=== PATIENT | female | born 1960 | race Caucasian/White ===

== ENCOUNTER → 2016-12-30 | Outpatient (CLI) | payer OTHER ==
[~2016-12-30] MED LIST: ASPI81TA28 PO; CHOL1000 PO; CYCL5TAB PO; EVAMIST TOP; HYDR25TA4 PO; LOSA1TAB38 PO; MECL1TAB42 PO; MISCTAB78 PO; MULT-506 PO; ONDA4TAB46 PO; OXYC-57 PO; OXYC7.5T65 PO; PHEN-876 PO; PROP1TAB PO; RANI150T3 PO; SULF800T23 PO; TAMS0.4C38 PO
[2016-12-30 15:03] LABS: BLOOD UREA NITROGEN 20 mg/dl (7-18); BUN/CREATININE RATIO 24.7 (10-20); CALCIUM 9.7 mg/dl (8.5-10.1); CARBON DIOXIDE 30 mmol/L (21-32); CHLORIDE 102 mmol/L (98-107); CREATININE 0.79 mg/dl (0.60-1.20); GLUCOSE 127 mg/dl (70-99); MAGNESIUM 2.1 mg/dl (1.8-2.4); POTASSIUM 3.8 mmol/L (3.5-5.1); SODIUM 141 mmol/L (136-145)
== END | disposition home or self-care (01) ==
LOC: C.LAB 14:05
PROVIDERS: ATTEND Internal Medicine Nephrology
DX: I10 Essential (primary) hypertension (principal); N20.0 Calculus of kidney

== ENCOUNTER → 2017-01-03 | Outpatient (CLI) | payer OTHER ==
[2017-01-03 18:10] LABS: BASO % 0.5 %; BASO ABS # 0.05 K/uL (0-0.2); COMPLETE YES; EOS % 5.2 %; HEMATOCRIT 38.6 % (37-47); IG% 0.3 %; LYMPH % 32.7 %; LYMPH ABS # 3.37 K/uL (1.2-3.4); MEAN CELL VOLUME 87.7 fL (80-100); MEAN CORPUSCULAR HEMOGLOBIN 29.3 pg (25-34); MEAN CORPUSCULAR HGB CONC 33.4 g/dl (32-36); MEAN PLATELET VOLUME 9.8 fL (7.4-10.4); MONO % 5.7 %; NEUT % 55.6 %; PLATELET COUNT 298 K/uL (130-400)
== END | disposition home or self-care (01) ==
LOC: C.LAB 16:55
PROVIDERS: ATTEND Nurse Practitioner Family
DX: N20.0 Calculus of kidney (principal)

== ENCOUNTER → 2017-01-10 | Day surgery (SDC) | payer OTHER ==
[2017-01-04 13:57] VITALS: BMI 51.0
[~2017-01-10] VITALS: Ht 160 cm; Wt 131.8 kg
[~2017-01-10] MED LIST changes: +ATROPINE SULFATE 0.1 MG/ML 5ML SYR IV PRN; +CIPROFLOXACIN / D5W 400 MG IV SCH; +CONRAY 30% 150ML BOTTLE INSTIL ONE; +DEXAMETHASONE SOD INJ 4 MG/ML VIAL ONE; +EpHEDrine SULFATE INJ 50 MG/ML AMP IV PRN; +FENTANYL CITRATE INJ 50 MCG/1 ML 2 ML VIAL ONE; +HYDROmorphone INJ 2 MG/ML SYR/VIAL IV PRN; +LACTATED RINGER'S 1000ML 1,000 ML IV SCH; +LIDOCAINE HCL 2% 2 ML VIAL (20MG/ML) ONE; +MIDAZOLAM HCL 1 MG/ML 2ML VIAL ONE; -ONDA4TAB46 PO; +ONDANSETRON INJ 2 MG/ML 2 ML VIAL IV PRN; +ONDANSETRON INJ 2 MG/ML 2 ML VIAL ONE; +OXYCODONE/ACETAMINOPHEN 5-325 TAB PO PRN; +PHENYLEPHRINE 100MCG/ML 5ML SYR IV PRN; +PHENYLEPHRINE 100MCG/ML 5ML SYR ONE; +PROPOFOL IV EMULSION 10 MG/ML 20 ML VIAL IV ONE; +ROCURONIUM BROMIDE 10 MG/ML 5 ML VIAL ONE; +SCOPOLAMINE 1.5 MG TDSY TD ONE; +SUCCINYLCHOLINE CHLORIDE 20 MG/ML 10 ML VIAL IV ONE; -SULF800T23 PO
[2017-01-10 10:22] VITALS: BP 174/89; PULSE 77; TEMP 37; O2SAT 96; Ht 160 cm; Wt 131.8 kg
--- NOTE | 2017-01-10 11:00 | History & Physical Bridge Note ---
H&P Re-Evaluation Bridge Note: I have examined the patient, reviewed the History & Physical and in the interval since the performance of the History & Physical I have noted the following changes of clinical significance: No changes noted
--- NOTE | 2017-01-10 12:17 | [facility] Post Operative Brief Note ---
Immediate Operative Summary Operative Date Jan 10, 2017. Pre-Operative Diagnosis Calculus of kidney and ureter Post-Operative Diagnosis Calculus of kidney and ureter Procedure(s) Performed Right Cystoscopy, Ureteroscopy, Laser Lithotripsy; Stent Surgeon Dr. Vaughn Freire [employer] Manager Surgeon(s) None Findings distal right ureteral stone
--- NOTE | 2017-01-10 12:19 | Discharge Instructions ---
Discharge Instructions Date of Service Jan 10, 2017. Visit Reason for Visit: Stones Discharge Discharge Diagnosis / Problem: stone Discharge Goals Goal(s): Therapeutic intervention Activity Recommendations Activity Limitations: resume your previous activity (take it easy today) Anesthesia . Post Anesthesia Instructions: If you have had General Anesthesia or IV Sedation: * Do not drive today. * Resume driving when surgeon permits. * Do not make important decisions or sign legal documents today. * Call surgeon for: 1. Temperature elevations greater than 101 degrees F. 2. Uncontrollable pain. 3. Excessive bleeding. 4. Persistent nausea and vomiting. 5. Medication intolerance (nausea, vomiting or rash). * For nausea and vomiting use only clear liquids such as: tea, soda, bouillon until nausea subsides, then gradually increase diet as tolerated. * If you have any concerns or questions, call your surgeon's office. If physician is unavailable and it is an emergency, call 911 or go to the nearest emergency room. . Diet Recommendations Recommended Home Diet: resume previous diet Procedures Procedures Performed: Right Cystoscopy, Ureteroscopy, Laser Lithotripsy; Stent Pending Studies Studies pending at discharge: no Medical Emergencies . Who to Call and When: Medical Emergencies: If at any time you feel your situation is an emergency, please call 911 immediately. . Non-Emergent Contact Non-Emergency issues call your: Urologist . . "Provider Documentation" section prepared by Vaughn Freire. [place] Drug Monitoring Program Search Results: patient reviewed within database
[2017-01-10 12:55] VITALS: BP 152/85; PULSE 68; TEMP 36.6; O2SAT 92
--- NOTE | 2017-01-10 13:08 | Anesthesiology Progress Note ---
Anesthesia Post Op Note Date & Time Jan 10, 2017 at 13:08 Vital Signs Pain Intensity: 0 Vital Signs Past 12 Hours Date Time Temp Pulse Resp B/P Pulse Ox O2 Delivery O2 Flow Rate FiO2 01/10/17 12:55 36.6 68 16 152/85 92 Room Air 01/10/17 12:45 36.8 138/93 01/10/17 12:42 73 20 98 01/10/17 12:42 73 20 01/10/17 12:40 144/91 01/10/17 12:37 75 23 01/10/17 12:37 75 23 100 01/10/17 12:36 112/92 01/10/17 12:32 64 18 01/10/17 12:32 64 18 100 01/10/17 12:30 130/83 01/10/17 12:27 68 20 01/10/17 12:27 67 20 100 01/10/17 12:26 131/81 01/10/17 12:22 68 20 01/10/17 12:22 67 20 100 01/10/17 12:21 131/81 01/10/17 12:19 127/77 01/10/17 12:12 36.2 80 16 126/84 99 Mask 10 01/10/17 10:22 37 77 18 174/89 96 Room Air Notes Mental Status: alert / awake / arousable, participated in evaluation Pt Amnestic to Procedure: Yes Nausea / Vomiting: adequately controlled Pain: adequately controlled Airway Patency, RR, SpO2: stable & adequate BP & HR: stable & adequate Hydration State: stable & adequate Anesthetic Complications: no major complications apparent
[2017-01-10 13:25] VITALS: BP 153/73; PULSE 63; TEMP 36.6; O2SAT 95
--- NOTE | 2017-01-10 13:41 | DIAGNOSTIC IMAGING REPORT ---
Retrograde PolyGram RIGHT RETROGRADE INCLUDES KUB CLINICAL HISTORY: RIGHT STENT PLACEMENT, LASER LITHO Right TECHNIQUE: Image intensifier COMPARISON STUDY: None FINDINGS: Single image provided shows a proximal stent in the region of the right renal pelvis. IMPRESSION: Stent placement of the proximal aspect in the right renal pelvis Electronically signed by: Tab Dunn M.D. 01/10/2017 1:40 PM Dictated Date/Time: 01/10/2017 1:39 PM
--- NOTE | 2017-01-10 13:48 | OPERATIVE REPORT ---
DATE OF OPERATION: 01/10/2017 PREOPERATIVE DIAGNOSIS: Distal right ureteral calculus. POSTOPERATIVE DIAGNOSIS: Same. PROCEDURES: Cystoscopy, right retrograde pyelogram, right ureteroscopy with laser lithotripsy of stone and basketing of fragments, placement of an indwelling double J right ureteral stent 6 Togolese x 26 cm. FINDINGS: Cystoscopic exam revealed normal urethra. Bladder showed no mucosal abnormalities. Retrograde showed a stone in the distal ureter confirmed by ureteroscopy. SURGEON: Dr. Freire. ANESTHESIA: General. DRAINS: 6-Togolese x 26 cm right ureteral stent. COMPLICATIONS: None. SPECIMENS: None. INDICATIONS: The patient is a 56-year-old white female who was seen in the office for a right renal colic secondary to a distal stone. She was unable to pass the stone around and she is being brought in now for laser lithotripsy. DESCRIPTION OF PROCEDURE: After the induction of an adequate general anesthetic and appropriate time-out, the patient was placed in the dorsal lithotomy position, lower abdomen and genitalia were prepped with Hibiclens and draped in a sterile fashion. Using a 22-Togolese cystoscope, routine cystoscopic exam was performed with the above noted findings. Next 0.03 guidewire was passed up the right ureter until positioned in the renal pelvis confirmed by fluoroscopy. Cystoscope was removed. Rigid ureteroscopy was done up to the level of the stone. The stone was then fragmented into multiple small pieces with a 200 micron holmium laser fiber. After completing this, some larger fragments were extracted with a 0 tip basket and handed off. After completing this and making sure there were no stone remaining in the ureter, a Pollack catheter was threaded over the wire until positioned in the renal pelvis. Retrograde was done to confirm position in the renal pelvis. The guidewire was rethreaded through the Cowen catheter and then rethreaded through the cystoscope and a 6 Togolese x 26 cm stent was passed over the guidewire to position in the renal pelvis confirmed by fluoroscopy. The guidewire was removed. There was good curl at the bladder level. The patient's bladder was drained. All needle, sponge and instrument counts were correct at the end of the case. The patient tolerated the procedure well and went to the recovery room in stable condition. I attest to the content of the Intraoperative Record and any orders documented therein. Any exceptio ns are noted below.
[2017-01-10 13:55] VITALS: BP 164/76; PULSE 75; TEMP 36.7; O2SAT 95
== END | disposition home or self-care (01) ==
LOC: C.ACU 09:52
PROVIDERS: ATTEND Urology
DX: N20.2 Calculus of kidney with calculus of ureter (principal); I10 Essential (primary) hypertension

== ENCOUNTER → 2017-01-17 | Outpatient (CLI) | payer OTHER ==
[~2017-01-17] MED LIST changes: -ATROPINE SULFATE 0.1 MG/ML 5ML SYR IV PRN; -CIPROFLOXACIN / D5W 400 MG IV SCH; -CONRAY 30% 150ML BOTTLE INSTIL ONE; -DEXAMETHASONE SOD INJ 4 MG/ML VIAL ONE; -EpHEDrine SULFATE INJ 50 MG/ML AMP IV PRN; -FENTANYL CITRATE INJ 50 MCG/1 ML 2 ML VIAL ONE; -HYDROmorphone INJ 2 MG/ML SYR/VIAL IV PRN; -LACTATED RINGER'S 1000ML 1,000 ML IV SCH; -LIDOCAINE HCL 2% 2 ML VIAL (20MG/ML) ONE; -MIDAZOLAM HCL 1 MG/ML 2ML VIAL ONE; -ONDANSETRON INJ 2 MG/ML 2 ML VIAL IV PRN; -ONDANSETRON INJ 2 MG/ML 2 ML VIAL ONE; -OXYCODONE/ACETAMINOPHEN 5-325 TAB PO PRN; -PHENYLEPHRINE 100MCG/ML 5ML SYR IV PRN; -PHENYLEPHRINE 100MCG/ML 5ML SYR ONE; -PROPOFOL IV EMULSION 10 MG/ML 20 ML VIAL IV ONE; -ROCURONIUM BROMIDE 10 MG/ML 5 ML VIAL ONE; -SCOPOLAMINE 1.5 MG TDSY TD ONE; -SUCCINYLCHOLINE CHLORIDE 20 MG/ML 10 ML VIAL IV ONE
--- NOTE | 2017-01-17 13:57 | DIAGNOSTIC IMAGING REPORT ---
KUB HISTORY: NEPHROLITHIASIS COMPARISON: KUB 07/27/2016. FINDINGS: The bowel gas pattern is unremarkable. There are no dilated loops of small bowel to suggest an obstruction. Cholecystectomy. A right ureteral stent appears be in good position. The left ureteral stent has been removed. Stable round calcifications in the deep pelvis which likely represent phleboliths. No definite renal or ureteral calculi identified. No pneumoperitoneum or pneumatosis. IMPRESSION: 1. A right ureteral stent appears to be in good position. 2. No definite renal or ureteral calculi identified. Electronically signed by: Marino Milan M.D. 01/17/2017 1:56 PM Dictated Date/Time: 01/17/2017 1:55 PM
== END | disposition home or self-care (01) ==
LOC: C.RAD 12:56
PROVIDERS: ATTEND Urology
DX: N20.0 Calculus of kidney (principal)

== ENCOUNTER → 2017-07-11 | Outpatient (CLI) | payer OTHER ==
[2017-07-11 12:48] LABS: BLOOD UREA NITROGEN 11 mg/dl (7-18); BUN/CREATININE RATIO 17.1 (10-20); CALCIUM 9.4 mg/dl (8.5-10.1); CARBON DIOXIDE 33 mmol/L (21-32); CHLORIDE 102 mmol/L (98-107); CREATININE 0.67 mg/dl (0.60-1.20); GLUCOSE 125 mg/dl (70-99); MAGNESIUM 2.1 mg/dl (1.8-2.4); SODIUM 139 mmol/L (136-145)
[2017-07-11 12:49] LABS: PHOSPHORUS 2.6 mg/dl (2.5-4.9)
== END | disposition home or self-care (01) ==
LOC: C.LAB 10:34
PROVIDERS: ATTEND Internal Medicine Nephrology
DX: N20.0 Calculus of kidney (principal)